=== PATIENT | female | born 1990 | race Caucasian/White ===

== ENCOUNTER → 2018-06-25 | Outpatient (CLI) | payer OTHER | LOC: M RAD 09:40 | DX: Z98.82 Breast implant status (principal) | CPT/HCPCS: 76642 ==

== ENCOUNTER 2018-07-08 07:57 | Outpatient (RCR) | payer OTHER | END 2018-07-18 | LOC: M OT 07:57 | DX: Z51.89 Encounter for other specified aftercare (principal); M79.644 Pain in right finger(s); R20.2 Paresthesia of skin; M62.81 Muscle weakness (generalized) | CPT/HCPCS: 97165 ==

== ENCOUNTER 2018-07-24 07:56 | Outpatient (RCR) | payer OTHER | END 2018-08-17 | LOC: M OT 07:56 | DX: Z51.89 Encounter for other specified aftercare (principal); M79.644 Pain in right finger(s); M62.81 Muscle weakness (generalized); R20.2 Paresthesia of skin ==

== ENCOUNTER 2018-08-19 07:39 | Outpatient (RCR) | payer OTHER | END 2018-09-17 | LOC: M OT 07:39 | DX: M79.644 Pain in right finger(s) (principal); M62.81 Muscle weakness (generalized); R20.2 Paresthesia of skin ==

== ENCOUNTER → 2018-09-22 | Outpatient (CLI) | payer OTHER ==
[2018-09-22 14:07] LABS: HCG, SERUM QUANTITATIVE < 1.0 MIU/ML
== END ==
LOC: M LAB 11:43
DX: Z30.9 Encounter for contraceptive management, unspecified (principal)
CPT/HCPCS: 84702